=== PATIENT | male | born 1970 | race Caucasian/White ===

== ENCOUNTER 2019-11-05 16:08 | Emergency (ER) | payer SELFPAY ==
[2019-11-05] MEDS ORDERED: LORazepam 2 MG/ML VIAL ONE (17:25)
--- NOTE | 2019-11-05 18:00 | RAD REPORT ---
EXAM DESCRIPTION: RAD - Chest Single View - 11/05/2019 5:41 pm CLINICAL HISTORY: SOB COMPARISON: May 2016 TECHNIQUE: AP portable chest image was obtained 11/05/2019 5:41 pm . FINDINGS: No focal lung parenchymal process. Interstitial pattern matches comparison. No mediastinal or hilar acute process. Heart and vasculature are normal. No measurable pleural effusion and no pneu mothorax. No acute bony abnormality seen. No acute aortic findings suspected. Exam has slight respira tory motion degradation. IMPRESSION: No acute cardiopulmonary process. No worrisome change from comparison.
[2019-11-05 18:04] LABS: Absolute Lymphocytes (CBC) 2.1 K/uL (0.7-4.9); Basophils % 0.8 % (0-1.3); Lymphocytes % 28.8 % (15.3-44.8); MPV 8.9 fL (7.6-11.3); RBC Red Blood Cell Count 5.65 M/uL (4.33-5.43)
[2019-11-05 18:05] LABS: Protime INR 0.94
[2019-11-05 18:14] LABS: ALT/SGPT 36 U/L (12-78); AST/SGOT 30 U/L (15-37); Albumin 3.9 g/dL (3.4-5.0); Alkaline Phosphatase 78 U/L (45-117); BUN Blood Urea Nitrogen 15 mg/dL (7-18); Bicarbonate 28 mmol/L (21-32); Bilirubin Direct 0.2 mg/dL (0-0.2); Bilirubin Total 1.2 mg/dL (0.2-1.0); Glucose Level 97 mg/dL (74-106); Magnesium 2.3 mg/dL (1.8-2.4); NT PRO-BNP 108 pg/mL (<125); Potassium 3.9 mmol/L (3.5-5.1); Protein, Total 7.9 g/dL (6.4-8.2); Sodium Level 138 mmol/L (136-145); Troponin (Emerg Dept Use Only) < 0.02 ng/mL (0.0-0.045)
--- NOTE | 2019-11-05 18:42 | EDPHYS ---
Physician Documentation [facility] Name: Maico De La Rosa Age: 49 yrs Sex: Male : 1970 Arrival Date: 11/05/2019 Time: 16:11 Bed 14 Private MD: None, None ED Physician Ian Jin HPI: 11/04 17:36 This 49 yrs old Male presents to ER via Wheelchair with complaints of pm1 Shortness Of Breath. 17:36 The patient has shortness of breath at rest. Onset: The symptoms/episode began/occurred pm1 5 day(s) ago. The patient's shortness of breath is aggravated by anxiety. Associated signs and symptoms: Pertinent positives: chest pain, palpitations, Pertinent negatives: non-productive cough, productive cough, fever. Severity of symptoms: in the emergency department the symptoms are unchanged. The patient has experienced similar episodes in the past, multiple times, today's symptoms are similar, to previous anxiety. The patient has not recently seen a physician. Patient feels that his symptoms are due to worsening anxiety. Historical: - Allergies: 16:25 No Known Allergies; tw2 - Home Meds: 16:25 albuterol sulfate 90 mcg/actuation Inhl HFAA every 4-6 hours [Active]; Nexium 40 mg tw2 Oral cpDR 2 times per day [Active]; - PMHx: 16:25 Anxiety; Asthma; Hypertension; tw2 - PSHx: 16:25 None; tw2 - Immunization history:: Adult Immunizations. - Social history:: Smoking status: Patient reports the use of cigarette tobacco products, smokes one pack cigarettes per day. Patient uses alcohol, "4-5 beers a day maybe". ROS: 17:36 Constitutional: Negative for fever, chills, and weight loss, Eyes: Negative for injury, pm1 pain, redness, and discharge, ENT: Negative for injury, pain, and discharge, Neck: Negative for injury, pain, and swelling. 17:36 Abdomen/GI: Negative for abdominal pain, nausea, vomiting, diarrhea, and constipation, Back: Negative for injury and pain, MS/Extremity: Negative for injury and deformity, Skin: Negative for injury, rash, and discoloration, Neuro: Negative for headache, weakness, numbness, tingling, and seizure. 17:36 Cardiovascular: Positive for chest pain, Negative for edema, palpitations. 17:36 Respiratory: Positive for shortness of breath, Negative for cough, dyspnea on exertion, wheezing. Exam: 17:36 Constitutional: This is a well developed, well nourished patient who is awake, alert, pm1 and in no acute distress. Head/Face: Normocephalic, atraumatic. Neck: Trachea midline, no thyromegaly or masses palpated, and no cervical lymphadenopathy. Supple, full range of motion without nuchal rigidity, or vertebral point tenderness. No Meningismus. 17:36 Chest/axilla: Normal chest wall appearance and motion. Nontender with no deformity. No lesions are appreciated. 17:36 Abdomen/GI: Soft, non-tender, with normal bowel sounds. No distension or tympany. No guarding or rebound. No evidence of tenderness throughout. Back: No spinal tenderness. No costovertebral tenderness. Full range of motion. Skin: Warm, dry with normal turgor. Normal color with no rashes, no lesions, and no evidence of cellulitis. MS/ Extremity: Pulses equal, no cyanosis. Neurovascular intact. Full, normal range of motion. 17:36 Cardiovascular: Exam negative for acute changes, Rate: normal, Rhythm: regular, Pulses: no pulse deficits are appreciated. 17:36 Respiratory: Exam negative for acute changes, respiratory distress, shortness of breath. 17:36 Neuro: Exam negative for acute changes, Orientation: is normal, Mentation: is normal, Motor: moves all fours. Vital Signs: 16:21 BP 140 / 122; Pulse 75; Resp 20; Temp 97.7(O); Pulse Ox 98% on R/A; Weight 133.81 kg tw2 (R); Height 6 ft. 1 in. (185.42 cm); Pain 0/10; 16:51 BP 176 / 113; Pulse 68; Resp 18; Pulse Ox 95% on R/A; dh4 16:21 Body Mass Index 38.92 (133.81 kg, 185.42 cm) tw2 MDM: 17:04 Patient medically screened. pm1 18:32 Data reviewed: vital signs. Data interpreted: Pulse oximetry: on room air is 95 %. pm1 Interpretation: normal. Counseling: I had a detailed discussion with the patient and/or guardian regarding: the historical points, exam findings, and any diagnostic results supporting the discharge/admit diagnosis, the need for outpatient follow up, for definitive care, a family practitioner, a psychiatrist, to return to the emergency department if symptoms worsen or persist or if there are any questions or concerns that arise at home. 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 pm1 11/04 17:12 Order name: Basic Metabolic Panel; Complete Time: 18:30 pm1 11/04 17:12 Order name: CBC with Diff; Complete Time: 18:30 pm1 11/04 17:12 Order name: LFT's; Complete Time: 18:30 pm1 11/04 17:12 Order name: Magnesium; Complete Time: 18:30 pm1 11/04 17:12 Order name: NT PRO-BNP; Complete Time: 18:30 pm1 11/04 17:12 Order name: PT-INR; Complete Time: 18:30 pm1 11/04 17:12 Order name: Troponin (emerg Dept Use Only); Complete Time: 18:30 pm1 11/04 17:12 Order name: XRAY Chest (1 view); Complete Time: 18:30 pm1 11/04 17:12 Order name: EKG; Complete Time: 17:13 pm1 11/04 17:12 Order name: Cardiac monitoring; Complete Time: 17:36 pm1 11/04 17:12 Order name: EKG - Nurse/Tech; Complete Time: 17:36 pm1 11/04 17:12 Order name: IV Saline Lock; Complete Time: 17:36 pm1 11/04 17:12 Order name: Labs collected and sent; Complete Time: 17:36 pm1 11/04 17:12 Order name: O2 Per Protocol; Complete Time: 17:36 pm1 11/04 17:12 Order name: O2 Sat Monitoring; Complete Time: 17:36 pm1 Administered Medications: 17:30 Drug: Ativan 0.5 mg Route: IVP; Site: right antecubital; ah 18:38 Follow up: Response: No adverse reaction ah 21:32 Follow up: Response: No adverse reaction Disposition: 11/05 13:14 Co-signature as Attending Physician, Ian Jin MD I agree with the assessment and kdr plan of care. Disposition: 11/05/19 18:41 Discharged to Home. Impression: Anxiety disorder, unspecified, Shortness of breath. - Condition is Stable. - Discharge Instructions: Panic Attacks, Shortness of Breath, Generalized Anxiety Disorder. - Prescriptions for Ativan 0.5 mg Oral Tablet - take 1 tablet by ORAL route every 8 hours As needed; 12 tablet. - Medication Reconciliation Form, Thank You Letter, Antibiotic Education, Prescription Opioid Use form. - Follow up: Emergency Department; When: As needed; Reason: Worsening of condition. Follow up: Private Physician; When: 2 - 3 days; Reason: Recheck today's complaints, Continuance of care, Re-evaluation by your physician. - Problem is new. - Symptoms have improved. Signatures: Dispatcher [employer] EDMS Ian Jin MD MD kdr Marinas, Patrick, NP MILLING MACHINIST pm1 Brie Shankar RN RN tw2 Julia Soto mw2 Teri Fields RN RN Corrections: (The following items were deleted from the chart) 11/04 19:41 18:41 11/05/2019 18:41 Discharged to Home. Impression: Anxiety disorder, mw2 unspecifiedShortness of breath. Condition is Stable. Forms are Medication Reconciliation Form, Thank You Letter, Antibiotic Education, Prescription Opioid Use. Follow up: Emergency Department; When: As needed; Reason: Worsening of condition. Follow up: Private Physician; When: 2 - 3 days; Reason: Recheck today's complaints, Continuance of care, Re-evaluation by your physician. Problem is new. Symptoms have improved. pm1
--- NOTE | 2019-11-05 18:42 | ER ---
Nurse's Notes [facility] Name: Maico De La Rosa Age: 49 yrs Sex: Male : 1970 Arrival Date: 11/05/2019 Time: 16:11 Bed 14 Private MD: None, None Diagnosis: Shortness of breath;Anxiety disorder, unspecified Presentation: 11/04 16:21 Chief complaint: Patient states: the shortness of breath has been going on for years, i tw2 have been in here for pneumonia, for about 5 days i have been short of breath, i have the cold sweats, lightheadedness, no energy, and panic attacks. Coronavirus screen: Patient denies a cough. Patient reports shortness of breath or difficulty breathing. Patient reports a measured and/or subjective temperature greater than 100.4F. Patient denies travel on a cruise ship or to a country the [facility] currently lists as an affected area. Patient denies contact with known and/or suspected case of COVID-19. Ebola Screen: Patient denies travel to an Ebola-affected area in the 21 days before illness onset. Initial Sepsis Screen: Does the patient meet any 2 criteria? RR > 20 per min. No. Patient's initial sepsis screen is negative. Does the patient have a suspected source of infection? No. Patient's initial sepsis screen is negative. Risk Assessment: Do you want to hurt yourself or someone else? Patient reports no desire to harm self or others. Onset of symptoms was November 05, 2019. 16:21 Method Of Arrival: Wheelchair tw2 16:21 Acuity: SPRING 3 tw2 16:25 Chief complaint: Patient states: the [facility] center sent me over here because they saw tw2 something aint right over my ekg and they wanted to call ems and i wanted to drive. Triage Assessment: 16:23 General: Appears in no apparent distress. obese, Behavior is anxious. Pain: Denies tw2 pain. Respiratory: Reports shortness of breath at rest on exertion Onset: The symptoms/episode began/occurred 5 days ago, the patient has moderate shortness of breath. Historical: - Allergies: 16:25 No Known Allergies; tw2 - Home Meds: 16:25 albuterol sulfate 90 mcg/actuation Inhl HFAA every 4-6 hours [Active]; Nexium 40 mg tw2 Oral cpDR 2 times per day [Active]; - PMHx: 16:25 Anxiety; Asthma; Hypertension; tw2 - PSHx: 16:25 None; tw2 - Immunization history:: Adult Immunizations. - Social history:: Smoking status: Patient reports the use of cigarette tobacco products, smokes one pack cigarettes per day. Patient uses alcohol, "4-5 beers a day maybe". Screenin:29 Abuse screen: Denies threats or abuse. Nutritional screening: No deficits noted. Tuberculosis screening: No symptoms or risk factors identified. Fall Risk None identified. Assessment: 16:40 General: Appears uncomfortable, Behavior is calm, cooperative. Pain: Denies pain. Neuro: Level of Consciousness is awake, alert, Oriented to person, place, time, situation. Cardiovascular: Heart tones S1 S2 present Capillary refill < 3 seconds Patient's skin is warm and dry. Rhythm is sinus rhythm. Respiratory: Airway is patent Respiratory effort is even, labored, Respiratory pattern is regular, symmetrical, Breath sounds with wheezes bilaterally. the patient has mild shortness of breath. GI: Abdomen is obese. Derm: Skin is intact, is healthy with good turgor. Vital Signs: 16:21 BP 140 / 122; Pulse 75; Resp 20; Temp 97.7(O); Pulse Ox 98% on R/A; Weight 133.81 kg tw2 (R); Height 6 ft. 1 in. (185.42 cm); Pain 0/10; 16:51 BP 176 / 113; Pulse 68; Resp 18; Pulse Ox 95% on R/A; dh4 16:21 Body Mass Index 38.92 (133.81 kg, 185.42 cm) tw2 ED Course: 16:11 Patient arrived in ED. mr 16:12 None, None is Private Physician. mr 16:23 Triage completed. tw2 16:23 Arm band placed on. tw2 16:35 EKG completed in triage. Results shown to . tw2 16:43 Teri Fields, RN is Primary Nurse. 16:45 Inserted saline lock: 20 gauge in right antecubital area, using aseptic technique. Blood collected. 17:04 Dagoberto De Dios NP is PHCP. pm1 17:04 Ian Jin MD is Attending Physician. pm1 17:41 XRAY Chest (1 view) In Process Unspecified. EDMS 18:39 Patient has correct armband on for positive identification. Bed in low position. Call light in reach. Side rails up X 1. campus monitor on. Pulse ox on. NIBP on. 19:00 No provider procedures requiring assistance completed. IV discontinued, intact, bleeding controlled, No redness/swelling at site. Pressure dressing applied. Administered Medications: 17:30 Drug: Ativan 0.5 mg Route: IVP; Site: right antecubital; 18:38 Follow up: Response: No adverse reaction 21:32 Follow up: Response: No adverse reaction Outcome: 18:41 Discharge ordered by MD. pm1 19:15 Discharged to home ambulatory. 19:15 Condition: good 19:15 Discharge instructions given to patient, Instructed on discharge instructions, follow up and referral plans. Demonstrated understanding of instructions, follow-up care, medications, Prescriptions given X 1. 19:41 Patient left the ED. mw2 Signatures: Dispatcher [employer] EDMI Sahra Tidwell Patrick, SUPERVISING EDITOR TRAILER SUPERVISING EDITOR TRAILER pm1 Brie Shankar, RN RN 2 Julia Soto mw2 Teri Fields, RN RN Bryant Stacy [facility]
[2019-11-05 19:55] VITALS: TEMP 97.7
[2019-11-05 19:56] VITALS: BP 176/113; O2SAT 95
--- NOTE | 2019-11-06 06:54 | EKG ---
Test Date: 2019-11-05 Test Time: 16:29:27 School Bus Driver/Teacher Assistant: ROSALES MEASUREMENT RESULTS: Intervals: Rate: 75 MO: 144 QRSD: 104 QT: 394 QTc: 439 [place]: P: 56 MO: 144 QRS: 47 T: 61 INTERPRETIVE STATEMENTS: Normal sinus rhythm Normal ECG Compared to ECG 06/17/2016 06:06:52 Atrial premature complex(es) no longer present Aberrant conduction of supraventricular beat(s) no longer present Myocardial infarct finding no longer present Electronically Signed On 11-06-19 06:53:22 CDT by Tiago Johnson
== END 2019-11-05 19:41 | disposition home or self-care (01) ==
LOC: ER 16:08
DX: F41.9 Anxiety disorder, unspecified (principal); I10 Essential (primary) hypertension; J45.909 Unspecified asthma, uncomplicated; F17.210 Nicotine dependence, cigarettes, uncomplicated
CPT/HCPCS: 36415; 71045; 80048; 80076; 83735; 83880; 84484; 85025; 85610; 93005; 96374; 99284